=== PATIENT | female | born 1965 | race Caucasian/White ===

== ENCOUNTER 2016-11-17 13:33 | Emergency (ER) | payer OTHER ==
[~2016-11-17] VITALS: Ht 165.1 cm; Wt 65.9 kg
[2016-11-17] MEDS ORDERED: ALBU8HFA IH (13:45)
[2016-11-17 16:26] VITALS: BP 110/69
== END 2016-11-17 16:29 | disposition home or self-care (01) ==
LOC: EMS 13:36
DX: S20.211A Contusion of right front wall of thorax, initial encounter (principal); R10.9 Unspecified abdominal pain; J45.909 Unspecified asthma, uncomplicated; F17.210 Nicotine dependence, cigarettes, uncomplicated; Z88.0 Allergy status to penicillin; Z88.2 Allergy status to sulfonamides; W18.09XA Striking against other object with subsequent fall, initial encounter; Y93.89 Activity, other specified; Y92.89 Other specified places as the place of occurrence of the external cause; Y99.8 Other external cause status
CPT/HCPCS: 71020; 99284

== ENCOUNTER 2016-11-27 17:48 | Emergency (ER) | payer OTHER ==
[~2016-11-27] VITALS: Ht 165.1 cm; Wt 65.9 kg
[~2016-11-27 17:48] MED LIST: ALBU8HFA IH
[2016-11-27] MEDS ORDERED: IBUP-2070 PO (18:00)
[2016-11-27] MEDS ORDERED: ACET-784 PO (18:00)
[2016-11-27] MEDS ORDERED: HYDROCODONE/ACETAMINOPHEN 5-325 MG TABLET PO ONE (19:15)
[2016-11-27 20:07] VITALS: BP 128/72
== END 2016-11-27 20:27 | disposition home or self-care (01) ==
LOC: EMS 17:49
DX: R07.81 Pleurodynia (principal); J45.909 Unspecified asthma, uncomplicated; F17.210 Nicotine dependence, cigarettes, uncomplicated; Z88.0 Allergy status to penicillin; Z88.2 Allergy status to sulfonamides
CPT/HCPCS: 99283